=== PATIENT | female | born 1975 | race Caucasian/White ===

== ENCOUNTER 2020-12-29 01:51 | Emergency (ER) | payer SELFPAY ==
[2020-12-29 01:52] VITALS: BP 141/100
[2020-12-29] MEDS ORDERED: DIAZEPAM 5 MG TABLET ONE (02:15)
--- NOTE | 2020-12-29 02:19 | NUR ---
Provider at bedside, RN at bedside. Pt breathing rapid, reporting pain in back, neck, abdomen, foot. C-collar on.
--- NOTE | 2020-12-29 02:20 | NUR ---
Pt to CT
--- NOTE | 2020-12-29 02:27 | NUR ---
Pt back from CT
[2020-12-29] MEDS ORDERED: DIAZEPAM 5 MG TABLET PO ONE (02:30)
--- NOTE | 2020-12-29 03:12 | NUR ---
Pt back from XR
== END 2020-12-29 04:54 | disposition home or self-care (01) ==
LOC: ED 04:12
DX: S39.012A Strain of muscle, fascia and tendon of lower back, initial encounter (principal); S29.012A Strain of muscle and tendon of back wall of thorax, initial encounter; S09.90XA Unspecified injury of head, initial encounter; M54.2 Cervicalgia; J45.909 Unspecified asthma, uncomplicated; W01.0XXA Fall on same level from slipping, tripping and stumbling without subsequent striking against object, initial encounter; Y93.89 Activity, other specified; Y92.89 Other specified places as the place of occurrence of the external cause; Y99.8 Other external cause status
CPT/HCPCS: 70450; 72072; 72110; 72125; 99285